=== PATIENT | female | born 1970 | race Caucasian/White ===

== ENCOUNTER 2020-05-30 06:29 | Day surgery (SDC) | payer MEDICAID ==
[2020-05-30] MEDS ORDERED: Sodium Chloride 0.9% 1,000 ML IV SCH (07:00)
[2020-05-30] MEDS ORDERED: fentaNYL 100 MCG/2 ML SDV ONE (07:25)
[2020-05-30] MEDS ORDERED: Propofol 200 MG/20 ML SDV ONE (07:25)
[2020-05-30] MEDS ORDERED: Midazolam 1 MG/ML 2 ML SDV ONE (07:25)
--- NOTE | 2020-05-30 11:00 | OR ---
DATE OF PROCEDURE: 05/30/2020 SURGEON: Chapin Bui MD PROCEDURES: 1. Esophagogastroduodenoscopy. 2. Colonoscopy. FINDINGS: 1. Mild inflammation in the GE junction (biopsied using cold biopsy forceps). 2. Normal-appearing gastrectomy without evidence of cancer recurrence. 3. Normal colon with a few scattered diverticula. COMPLICATIONS: None. COMPUTER NUMERICAL CONTROL PROGRAMMER: None. PREOPERATIVE DIAGNOSES: 1. History of gastric adenocarcinoma. 2. Screening colonoscopy. POSTOPERATIVE DIAGNOSES: History of gastric adenocarcinoma. Screening colonoscopy. RISKS: Risks, benefits, alternatives, and limitations including, but not limited to infection, bleeding, perforation, false positives, false negatives were explained to the patient who wished to proceed. PROCEDURE IN DETAIL: The patient was placed in left lateral decubitus position. EGD scope was introduced and advanced into the small bowel. As the patient had a previous gastrectomy, the remnant of the stomach did not show any abnormality. There were no mucosal lesions, no bleeding, no gastritis, or inflammation of the small bowel. The patient had some very mild prominence of the GE junction. This was biopsied using cold biopsy forceps. The remainder of the esophagus was normal. Digital rectal exam was performed without abnormality. Scope was introduced and advanced atraumatically to the ileocecal valve. A photo was taken of this. Scope was brought back to the ascending, transverse, descending colon, and retroflexed. No evidence of old or new blood. No masses. No polyps. No colitis. No diverticulitis. The patient had a few scattered diverticula. No abnormalities on retroflexion. The patient tolerated the procedure well. Chapin Bui MD /[id number]
== END 2020-05-30 09:40 | disposition home or self-care (01) ==
LOC: JP.SDS 06:29
PROVIDERS: ATTEND Surgery
DX: Z12.11 Encounter for screening for malignant neoplasm of colon (principal); K57.30 Diverticulosis of large intestine without perforation or abscess without bleeding; K31.89 Other diseases of stomach and duodenum; E05.90 Thyrotoxicosis, unspecified without thyrotoxic crisis or storm; Z85.028 Personal history of other malignant neoplasm of stomach
CPT/HCPCS: 43239; 45378; J2250; J2704; J3010; J7030